=== PATIENT | female | born 1990 | race Caucasian/White ===

== ENCOUNTER 2018-07-25 16:13 | Emergency (ER) | payer SELFPAY ==
[~2018-07-25] VITALS: Ht 170.2 cm; Wt 98.9 kg
[2018-07-25 16:50] LABS: BASOPHILS # (AUTO) 0.02 x10^3/uL (0-0.1); BASOPHILS % (AUTO) 0 % (0-1); EOSINOPHILS # (AUTO) 0.33 x10^3/uL (0-0.4); EOSINOPHILS % (AUTO) 6 % (1-7); LYMPHOCYTES # (AUTO) 1.51 x10^3/uL (1-3.4); LYMPHOCYTES % (AUTO) 25 % (22-44); MD NO; MEAN CORPUSCULAR HEMOGLOBIN 30.4 pg (27.0-34.8); MEAN CORPUSCULAR HGB CONC 35.1 g/dL (32.4-35.8); MEAN CORPUSCULAR VOLUME 86.8 fL (80-100); MEAN PLATELET VOLUME 9.2 fL (7.4-10.4); MONOCYTES # (AUTO) 0.53 x10^3/uL (0.2-0.8); MONOCYTES % (AUTO) 9 % (2-9); NEUTROPHILS # (AUTO) 3.72 x10^3/uL (1.8-6.8); NEUTROPHILS % (AUTO) 61 % (42-75); PLATELET COUNT 211 x10^3/uL (130-400); RED BLOOD COUNT 5.39 x10^6/uL (3.82-5.3); RED CELL DISTRIBUTION WIDTH 13.3 % (9.6-15.2)
[2018-07-25 16:58] LABS: ALANINE AMINOTRANSFERASE 47 U/L (12-78); ALBUMIN 3.7 g/dL (3.4-5.0); ANION GAP 5 mmol/L (5-15); CALCIUM 8.7 mg/dL (8.5-10.1); CHLORIDE 110 mmol/L (98-107); CREATININE 0.76 mg/dL (0.55-1.02)
[2018-07-25] MEDS ORDERED: SODIUM CHLORIDE 0.9% 1,000ML IVBOLUS ONE ×2 (17:00→18:30)
[2018-07-25] MEDS ORDERED: ONDANSETRON 2MG/ML, 2ML IVPush ONE (17:00)
[2018-07-25] MEDS ORDERED: FAMOTIDINE 20 MG/2 ML IVP ONE (17:00)
[2018-07-25 17:03] LABS: ALKALINE PHOSPHATASE 140 U/L (45-117); BILIRUBIN,TOTAL 0.5 mg/dL (0.2-1.0); TOTAL PROTEIN 7.9 g/dL (6.4-8.2)
[2018-07-25] MEDS ORDERED: ONDANSETRON 2MG/ML, 2ML ONE (17:04)
[2018-07-25] MEDS ORDERED: FAMOTIDINE 20 MG/2 ML ONE (17:04)
--- NOTE | 2018-07-25 18:10 | NUR ---
Patient ambulated to bathroom with steady gait.
--- NOTE | 2018-07-25 19:02 | NUR ---
Report to Carmenza FORD
--- NOTE | 2018-07-25 19:23 | NUR ---
RECEIVED BS REPORT FROM LOGAN REBOLLEDO TO ASSUME PT. CARE AT 1902. PT. HAS BEEN PROVIDED WITH WATER PER DR. LAMONT GIL. PT. REPORTS SHE IS STILL UNABLE TO VOID DESPITE 2L NS BOLUS. CALL LIGHT IN REACH. ALL SAFETY MEASURES OBSERVED.
--- NOTE | 2018-07-25 20:04 | NUR ---
PT. AMBULATORY TO BR AGAIN WITH STEADY GAIT TO ATTEMPT TO PROVIDE URINE/STOOL SAMPLES.
--- NOTE | 2018-07-25 20:16 | NUR ---
URINE AND STOOL SAMPLES WALKED TO LAB.
[2018-07-25] MEDS ORDERED: KETOROLAC 30 MG/1 ML ONE (20:19)
--- NOTE | 2018-07-25 20:23 | NUR ---
PT. C/O TAVERAS "FROM THE LIGHTS IN HERE". ALL LIGHT IN ROOM OFF AND CURTAIN CLOSED. PT. MEDICATED PER MAR FOR THIS WELL. DENIES OTHER NEEDS. CALL LIGHT IN REACH. MONITORS IN PLACE.
[2018-07-25] MEDS ORDERED: KETOROLAC 30 MG/1 ML IVPush ONE (20:30)
[2018-07-25 20:35] LABS: CULTURE INDICATED? YES; MICROSCOPIC INDICATED
[2018-07-25 21:16] LABS: CLOSTRIDIUM DIFFICILE ANTIGEN NEGATIVE; CLOSTRIDIUM DIFFICILE TOXIN NEGATIVE (Negative)
[2018-07-25 21:30] VITALS: BP 98/65
--- NOTE | 2018-07-25 21:32 | NUR ---
PT. RESTING ON GUBRANDY WITH MELY. CHART UP FOR RECHECK BY [facility].
== END 2018-07-25 21:50 | disposition home or self-care (01) ==
LOC: ED 17:33
DX: A08.4 Viral intestinal infection, unspecified (principal)
CPT/HCPCS: 36415; 80053; 81001; 83690; 84703; 85025; 87086; 87324; 89055; 96361; 96374; 96375; 99283; J1885; J2405; J3490; J7030